=== PATIENT | male | born 1980 | race Caucasian/White ===

== ENCOUNTER 2019-07-31 04:59 | Emergency (ER) | payer BC ==
[2019-07-31] MEDS ORDERED: ONDANSETRON 4 MG/2 ML VIAL ONE ×2 (05:31→06:49)
[2019-07-31] MEDS ORDERED: MORPHINE 4 MG/ML SYR ONE (05:31)
[2019-07-31] MEDS ORDERED: NA CHLORIDE 0.9% 1,000 ML ONE ×2 (05:31→06:47)
[2019-07-31 06:07] LABS: Absolute Lymphocytes (CBC) 0.7 K/uL (0.7-4.9); Basophils % 0.5 % (0-1.3); Hematocrit 44.7 % (39.6-49.0); Lymphocytes % 12.1 % (15.3-44.8); MPV 9.9 fL (7.6-11.3); RBC Red Blood Cell Count 4.68 M/uL (4.33-5.43)
[2019-07-31] MEDS ORDERED: KETOROLAC 30 MG/ML INJ ONE (06:27)
--- NOTE | 2019-07-31 06:33 | EDPHYS ---
[facility] Name: Jordan Ross Age: 39 yrs Sex: Male : 1980 Arrival Date: 07/31/2019 Time: 05:03 Bed 4 Private MD: ED Physician Jonathan Feng HPI: 07/31 05:53 This 39 yrs old Male presents to ER via Ambulatory with complaints of Low alejandrina Back Pain. 05:53 The patient presents with pain that is acute. The symptoms are located in the low back, alejandrina left low back and left mid back. The pain radiates to the left low back and left mid back. The problem was sustained from unknown cause. Onset: The symptoms/episode began/occurred yesterday. Modifying factors: The patient symptoms are alleviated by nothing, the patient symptoms are aggravated by nothing. Severity of symptoms: At their worst the symptoms were mild, moderate, in the emergency department the symptoms are unchanged. The patient has not experienced similar symptoms in the past. Historical: - Allergies: 05:21 No Known Allergies; aa1 - Home Meds: 05:21 amlodipine oral [Active]; Adderall XR Oral [Active]; Diazepam Oral [Active]; Ambien aa1 Oral [Active]; - PMHx: 05:21 Depression; Hypertension; High Cholesterol; Anxiety; Kidney stones; aa1 - PSHx: 05:21 None; aa1 - Immunization history:: Flu vaccine is not up to date. - Coronavirus screen:: The patient has NOT traveled to [place] in the past 14 days. Proceed with normal triage process as indicated. - Social history:: Smoking status: Patient reports the use of cigarette tobacco products, smokes one-half pack cigarettes per day. - Family history:: not pertinent. - Ebola Screening: : No symptoms or risks identified at this time. ROS: 05:53 Constitutional: Negative for fever, chills, and weight loss, Eyes: Negative for injury, alejandrina pain, redness, and discharge, ENT: Negative for injury, pain, and discharge, Neck: Negative for injury, pain, and swelling, Cardiovascular: Negative for chest pain, palpitations, and edema, Respiratory: Negative for shortness of breath, cough, wheezing, and pleuritic chest pain, Abdomen/GI: Negative for abdominal pain, nausea, vomiting, diarrhea, and constipation, : Negative for injury, bleeding, discharge, and swelling, MS/Extremity: Negative for injury and deformity, Skin: Negative for injury, rash, and discoloration, Neuro: Negative for headache, weakness, numbness, tingling, and seizure, Psych: Negative for depression, anxiety, suicide ideation, homicidal ideation, and hallucinations, Allergy/Immunology: Negative for hives, rash, and allergies, Endocrine: Negative for neck swelling, polydipsia, polyuria, polyphagia, and marked weight changes, Hematologic/Lymphatic: Negative for swollen nodes, abnormal bleeding, and unusual bruising. 05:53 Back: Positive for flank pain, on the left. Exam: 05:53 Constitutional: This is a well developed, well nourished patient who is awake, alert, alejandrina and in no acute distress. Head/Face: Normocephalic, atraumatic. Eyes: Pupils equal round and reactive to light, extra-ocular motions intact. Lids and lashes normal. Conjunctiva and sclera are non-icteric and not injected. Cornea within normal limits. Periorbital areas with no swelling, redness, or edema. ENT: Nares patent. No nasal discharge, no septal abnormalities noted. Tympanic membranes are normal and external auditory canals are clear. Oropharynx with no redness, swelling, or masses, exudates, or evidence of obstruction, uvula midline. Mucous membranes moist. Neck: Trachea midline, no thyromegaly or masses palpated, and no cervical lymphadenopathy. Supple, full range of motion without nuchal rigidity, or vertebral point tenderness. No Meningismus. Chest/axilla: Normal chest wall appearance and motion. Nontender with no deformity. No lesions are appreciated. Cardiovascular: Regular rate and rhythm with a normal S1 and S2. No gallops, murmurs, or rubs. Normal PMI, no JVD. No pulse deficits. Respiratory: Lungs have equal breath sounds bilaterally, clear to auscultation and percussion. No rales, rhonchi or wheezes noted. No increased work of breathing, no retractions or nasal flaring. Abdomen/GI: Soft, non-tender, with normal bowel sounds. No distension or tympany. No guarding or rebound. No evidence of tenderness throughout. Male : Normal genitalia with no discharge or lesions. Skin: Warm, dry with normal turgor. Normal color with no rashes, no lesions, and no evidence of cellulitis. MS/ Extremity: Pulses equal, no cyanosis. Neurovascular intact. Full, normal range of motion. Neuro: Awake and alert, GCS 15, oriented to person, place, time, and situation. Cranial nerves II-XII grossly intact. Motor strength 5/5 in all extremities. Sensory grossly intact. Cerebellar exam normal. Normal gait. Psych: Awake, alert, with orientation to person, place and time. Behavior, mood, and affect are within normal limits. 05:53 Back: pain, that is mild, that is moderate, ROM is normal, normal spinal alignment noted, CVA tenderness, is absent, muscle spasm, is not present. Vital Signs: 05:21 BP 121 / 88; Pulse 95; Resp 18; Temp 98.1; Pulse Ox 99% on R/A; Weight 71.21 kg; Height aa1 5 ft. 9 in. (175.26 cm); Pain 8/10; 06:45 BP 124 / 91; Pulse 90; Resp 18; Pulse Ox 100% ; ea 07:45 BP 119 / 81; Pulse 85; Resp 18; Temp 97.8; Pulse Ox 99% on R/A; ph 05:21 Body Mass Index 23.18 (71.21 kg, 175.26 cm) [facility] MDM: 05:07 Patient medically screened. [facility] 05:56 Data reviewed: vital signs, nurses notes, lab test result(s), radiologic studies, CT [facility] scan. 07/31 05:17 Order name: Basic Metabolic Panel; Complete Time: 06:50 [facility] 07/31 05:17 Order name: CBC with Diff; Complete Time: 06:28 [facility] 07/31 05:17 Order name: Creatinine for Radiology; Complete Time: 06:28 [facility] 07/31 05:17 Order name: Hepatic Function; Complete Time: 06:50 [facility] 07/31 05:17 Order name: Lipase; Complete Time: 06:50 [facility] 07/31 05:53 Order name: Urine Culture [facility] 07/31 05:17 Order name: CT Stone Protocol [facility] 07/31 06:46 Order name: Abdomen 1 View (KUB) XRAY [facility] 07/31 05:17 Order name: IV Saline Lock; Complete Time: 05:46 [facility] 07/31 05:17 Order name: Labs collected and sent; Complete Time: 05:46 aa1 07/31 05:53 Order name: Urine Dipstick-Ancillary (obtain specimen); Complete Time: 06:56 alejandrina Administered Medications: 05:32 Drug: Zofran 4 mg Route: IVP; Site: right antecubital; aa1 06:15 Follow up: Response: No adverse reaction; Nausea is decreased jb4 05:32 Drug: NS 0.9% 1000 ml Route: IV; Rate: 1 bolus; Site: right antecubital; aa1 06:00 Follow up: Response: No adverse reaction; IV Status: Completed infusion; IV Intake: ea 1000ml 05:34 Drug: morphine 4 mg Route: IVP; Site: right antecubital; aa1 06:15 Follow up: Response: No adverse reaction; Pain is unchanged, physician notified; RASS: jb4 Restless (+1) 06:25 Drug: TORadol 30 mg Route: IVP; Site: right antecubital; jb4 06:50 Follow up: Response: No adverse reaction ea 06:48 Drug: Rocephin 1 grams Route: IV; Rate: per protocol; Site: right antecubital; ea 07:06 Follow up: Response: No adverse reaction; IV Status: Completed infusion ea 06:50 Drug: Zofran 4 mg Route: IVP; Site: right antecubital; ea 08:14 Follow up: Response: No adverse reaction ph 06:53 Drug: Flomax 0.4 mg Route: PO; ea 07:07 Follow up: Response: No adverse reaction ea 06:53 Drug: NS 0.9% 1000 ml Route: IV; Rate: 1 bolus; Site: right antecubital; ea 08:14 Follow up: Response: No adverse reaction; IV Status: Completed infusion; IV Intake: ph 1000ml 06:53 Drug: Dilaudid 1 mg Route: IVP; Site: right antecubital; ea 08:14 Follow up: Response: No adverse reaction; Pain is decreased; RASS: Alert and Calm (0) ph Disposition: 07/31/19 06:51 Discharged to Home. Impression: Hydronephrosis with renal and ureteral calculous obstruction - 4 mm distal left ureter, Cholelithiasis. - Condition is Fair. - Discharge Instructions: Kidney Stones, Cholelithiasis, Kidney Stones, [id number], Cholelithiasis, [id number], Hydronephrosis, Dietary Guidelines to Help Prevent Kidney Stones. - Prescriptions for Tylenol- Codeine #3 300-30 mg Oral Tablet - take 2 tablet by ORAL route every 6 hours As needed; 30 tablet. Zofran 4 mg Oral Tablet - take 1 tablet by ORAL route every 12 hours As needed; 20 tablet. Flomax 0.4 mg Oral Capsule, Sust. Release 24 hr - take 1 capsule by ORAL route once daily 1/2 hour following the same meal each day; 26 capsule. Cipro 500 mg Oral Tablet - take 1 tablet by ORAL route every 12 hours for 7 days; 14 tablet. - Medication Reconciliation Form, Thank You Letter, Antibiotic Education, Prescription Opioid Use, Work release form form. - Follow up: Private Physician; When: 2 - 3 days; Reason: Recheck today's complaints, Continuance of care, Re-evaluation by your physician. Follow up: Lisa Nascimento; When: 1 - 2 days; Reason: Recheck today's complaints, Continuance of care, Re-evaluation by your physician. Follow up: Sarkis Cota; When: 2 - 3 days; Reason: Recheck today's complaints, Re-evaluation by your physician. - Problem is new. - Symptoms have improved. Signatures: Dispatcher [employer] EDMS Dalia Alfaro RN RN aa1 Jonathan Feng MD MD cha Hall, Patricia RN RN Jordan Peace RN RN jb4 Kay Castaneda RN RN ea Corrections: (The following items were deleted from the chart) 06:33 06:32 07/31/2019 06:32 Discharged to Home. Impression: Hydronephrosis with renal and alejandrina ureteral calculous obstruction. Condition is Stable. Forms are Medication Reconciliation Form, Thank You Letter, Antibiotic Education, Prescription Opioid Use. Follow up: Private Physician; When: 2 - 3 days; Reason: Recheck today's complaints, Continuance of care, Re-evaluation by your physician. Follow up: Lisa Nascimento; When: 2 - 3 days; Reason: Recheck today's complaints, Re-evaluation by your physician. Problem is new. Symptoms have improved. [facility] 06:47 06:33 07/31/2019 06:32 Discharged to Home. Impression: Hydronephrosis with renal and alejandrina ureteral calculous obstruction - 4mm distal left ureter. Condition is Stable. Forms are Medication Reconciliation Form, Thank You Letter, Antibiotic Education, Prescription Opioid Use. Follow up: Private Physician; When: 2 - 3 days; Reason: Recheck today's complaints, Continuance of care, Re-evaluation by your physician. Follow up: Lisa Nascimento; When: 2 - 3 days; Reason: Recheck today's complaints, Re-evaluation by your physician. Problem is new. Symptoms have improved. [facility] 08:19 06:51 07/31/2019 06:51 Discharged to Home. Impression: Hydronephrosis with renal and ph ureteral calculous obstruction - 4 mm distal left ureter; Cholelithiasis. Condition is Fair. Discharge Instructions: Kidney Stones, Cholelithiasis, Kidney Stones, Vhvj-id-Tmes, Cholelithiasis, Dilv-np-Tjqt, Hydronephrosis, Dietary Guidelines to Help Prevent Kidney Stones. Prescriptions for Tylenol-Codeine #3 300-30 mg Oral Tablet - take 2 tablet by ORAL route every 6 hours As needed; 30 tablet, Zofran 4 mg Oral Tablet - take 1 tablet by ORAL route every 12 hours As needed; 20 tablet, Flomax 0.4 mg Oral Capsule, Sust. Release 24 hr - take 1 capsule by ORAL route once daily 1/2 hour following the same meal each day; 30 capsule, Cipro 500 mg Oral Tablet - take 1 tablet by ORAL route every 12 hours for 7 days; 14 tablet, Tylenol-Codeine #3 300-30 mg Oral Tablet - take 2 tablet by ORAL route every 6 hours As needed; 30 tablet, Zofran 4 mg Oral Tablet - take 1 tablet by ORAL route every 12 hours As needed; 20 tablet, Flomax 0.4 mg Oral Capsule, Sust. Release 24 hr - take 1 capsule by ORAL route once daily 1/2 hour following the same meal each day; 26 capsule, Cipro 500 mg Oral Tablet - take 1 tablet by ORAL route every 12 hours for 7 days; 14 tablet. and Forms are Medication Reconciliation Form, Thank You Letter, Antibiotic Education, Prescription Opioid Use. Follow up: Private Physician; When: 2 - 3 days; Reason: Recheck today's complaints, Continuance of care, Re-evaluation by your physician. Follow up: Lisa Nascimento; When: 1 - 2 days; Reason: Recheck today's complaints, Continuance of care, Re-evaluation by your physician. Follow up: Sarkis Cota; When: 2 - 3 days; Reason: Recheck today's complaints, Re-evaluation by your physician. Problem is new. Symptoms have improved. alejandrina
--- NOTE | 2019-07-31 06:33 | ER ---
Nurse's Notes [facility] Name: Jordan Ross Age: 39 yrs Sex: Male : 1980 Arrival Date: 07/31/2019 Time: 05:03 Bed 4 Private MD: Diagnosis: Hydronephrosis with renal and ureteral calculous obstruction-4 mm distal left ureter;Cholelithiasis Presentation: 07/31 05:18 Presenting complaint: Patient states: he thinks he may have a kidney stone again. aa1 Report L low back pain and nausea since 0000 tonight. Transition of care: patient was not received from another setting of care. Onset of symptoms was July 31, 2019 at 00:00. Risk Assessment: Do you want to hurt yourself or someone else? Patient reports no desire to harm self or others. Initial Sepsis Screen: Does the patient meet any 2 criteria? HR > 90 bpm. Does the patient have a suspected source of infection? No. Patient's initial sepsis screen is negative. Care prior to arrival: None. 05:18 Method Of Arrival: Ambulatory aa1 05:18 Acuity: MARC 3 aa1 Triage Assessment: 05:21 General: Appears in no apparent distress. uncomfortable, Behavior is calm, cooperative, aa1 appropriate for age. Historical: - Allergies: 05:21 No Known Allergies; aa1 - Home Meds: 05:21 amlodipine oral [Active]; Adderall XR Oral [Active]; Diazepam Oral [Active]; Ambien aa1 Oral [Active]; - PMHx: 05:21 Depression; Hypertension; High Cholesterol; Anxiety; Kidney stones; aa1 - PSHx: 05:21 None; aa1 - Immunization history:: Flu vaccine is not up to date. - Coronavirus screen:: The patient has NOT traveled to [place] in the past 14 days. Proceed with normal triage process as indicated. - Social history:: Smoking status: Patient reports the use of cigarette tobacco products, smokes one-half pack cigarettes per day. - Family history:: not pertinent. - Ebola Screening: : No symptoms or risks identified at this time. Screenin:30 Abuse screen: Denies threats or abuse. Nutritional screening: No deficits noted. ea Tuberculosis screening: No symptoms or risk factors identified. Fall Risk IV access (20 points). Assessment: 05:30 General: Appears uncomfortable, Behavior is appropriate for age. Pain: Complains of ea pain in left mid back and left low back. Neuro: Level of Consciousness is awake, alert, obeys commands, Oriented to person, place, time, situation. Cardiovascular: Patient's skin is warm and dry. Respiratory: Airway is patent Respiratory effort is even, unlabored, Respiratory pattern is regular, symmetrical. Derm: Skin is pink, warm \T\ dry. 06:15 Reassessment: Pt reports pain has increased since arriving to ED and that the morphine jb4 did not help. Provider notified, see MAR for orders. 06:30 Reassessment: Patient and/or family updated on plan of care and expected duration. Pain ea level reassessed. Patient is alert, oriented x 3, equal unlabored respirations, skin warm/dry/pink. 08:17 Reassessment: Patient appears in no apparent distress at this time. Patient and/or ph family updated on plan of care and expected duration. Pain level reassessed. Patient is alert, oriented x 3, equal unlabored respirations, skin warm/dry/pink. Pt d/c home. Vital Signs: 05:21 BP 121 / 88; Pulse 95; Resp 18; Temp 98.1; Pulse Ox 99% on R/A; Weight 71.21 kg; Height aa1 5 ft. 9 in. (175.26 cm); Pain 8/10; 06:45 BP 124 / 91; Pulse 90; Resp 18; Pulse Ox 100% ; ea 07:45 BP 119 / 81; Pulse 85; Resp 18; Temp 97.8; Pulse Ox 99% on R/A; ph 05:21 Body Mass Index 23.18 (71.21 kg, 175.26 cm) aa1 ED Course: 05:03 Patient arrived in ED. ag3 05:07 Jonathan Feng MD is Attending Physician. alejandrina 05:20 Triage completed. aa1 05:21 Arm band placed on left wrist. aa1 05:25 Inserted saline lock: 18 gauge in right antecubital area, using aseptic technique. cm6 05:30 Patient has correct armband on for positive identification. Bed in low position. Call ea light in reach. 05:34 Kay Castaneda, DANIEL is Primary Nurse. ea 06:09 CT Stone Protocol In Process Unspecified. EDMS 06:31 Lisa Nascimento MD is Referral Physician. alejandrina 06:51 Lisa Nascimento MD is Referral Physician. alejandrina 06:51 Sarkis Cota MD is Referral Physician. alejandrina 07:06 Abdomen 1 View (KUB) XRAY In Process Unspecified. EDMS 08:15 No provider procedures requiring assistance completed. IV discontinued, intact, ph bleeding controlled, No redness/swelling at site. Pressure dressing applied. Administered Medications: 05:32 Drug: Zofran 4 mg Route: IVP; Site: right antecubital; aa1 06:15 Follow up: Response: No adverse reaction; Nausea is decreased jb4 05:32 Drug: NS 0.9% 1000 ml Route: IV; Rate: 1 bolus; Site: right antecubital; aa1 06:00 Follow up: Response: No adverse reaction; IV Status: Completed infusion; IV Intake: ea 1000ml 05:34 Drug: morphine 4 mg Route: IVP; Site: right antecubital; aa1 06:15 Follow up: Response: No adverse reaction; Pain is unchanged, physician notified; RASS: jb4 Restless (+1) 06:25 Drug: TORadol 30 mg Route: IVP; Site: right antecubital; jb4 06:50 Follow up: Response: No adverse reaction ea 06:48 Drug: Rocephin 1 grams Route: IV; Rate: per protocol; Site: right antecubital; ea 07:06 Follow up: Response: No adverse reaction; IV Status: Completed infusion ea 06:50 Drug: Zofran 4 mg Route: IVP; Site: right antecubital; ea 08:14 Follow up: Response: No adverse reaction ph 06:53 Drug: Flomax 0.4 mg Route: PO; ea 07:07 Follow up: Response: No adverse reaction ea 06:53 Drug: NS 0.9% 1000 ml Route: IV; Rate: 1 bolus; Site: right antecubital; ea 08:14 Follow up: Response: No adverse reaction; IV Status: Completed infusion; IV Intake: ph 1000ml 06:53 Drug: Dilaudid 1 mg Route: IVP; Site: right antecubital; ea 08:14 Follow up: Response: No adverse reaction; Pain is decreased; RASS: Alert and Calm (0) ph Intake: 06:00 IV: 1000ml; Total: 1000ml. ea 08:14 IV: 1000ml; Total: 2000ml. ph Outcome: 06:32 Discharge ordered by . alejandrina 06:51 Discharge ordered by . alejandrina 08:15 Discharged to home ambulatory. ph 08:15 Condition: good 08:15 Discharge instructions given to patient, Instructed on discharge instructions, follow up and referral plans. medication usage, Demonstrated understanding of instructions, follow-up care, medications, Prescriptions given X 4. 08:19 Patient left the ED. ph Signatures: Dispatcher [employer] EDMS Dalia Alfaro, RN RN aa1 Jonathan Feng MD MD cha Hall, Patricia, RN RN ph Bryson, James RN RN [id number] Kay Castaneda, RN Leia Rice ea, Candace cm6 Corrections: (The following items were deleted from the chart) 05:38 05:38 Inserted saline lock: 18 gauge in right antecubital area, using aseptic cm6 technique. cm6
[2019-07-31 06:37] LABS: Albumin 4.2 g/dL (3.4-5.0); Bilirubin Direct 0.2 mg/dL (0-0.2); Bilirubin Total 0.5 mg/dL (0.2-1.0); Potassium 3.6 mmol/L (3.5-5.1); Protein, Total 7.4 g/dL (6.4-8.2)
[2019-07-31] MEDS ORDERED: TAMSULOSIN 0.4 MG SR CAP ONE (06:47)
[2019-07-31] MEDS ORDERED: CEFTRIAXONE/SWI 1gm 1 GM/10 ML SYR ONE (06:47)
[2019-07-31] MEDS ORDERED: HYDROMORPHONE HCL 1 MG/ML INJ ONE (06:49)
[2019-07-31 08:31] VITALS: BP 119/81; TEMP 97.8; O2SAT 99
--- NOTE | 2019-07-31 09:06 | RAD REPORT ---
EXAM DESCRIPTION: RAD - Abdomen 1 View (KUB) - 07/31/2019 7:15 am CLINICAL HISTORY: left distal 4mm ureter calculi;Abd pain Pain COMPARISON: Stone Protocol dated 07/31/2019 FINDINGS: The bowel gas pattern is non-obstructive. No evidence of free air or pneumatosis. Tiny obl richi calcification in the left pelvis likely represents distal left ureter stone.
--- NOTE | 2019-07-31 10:43 | RAD REPORT ---
EXAM DESCRIPTION: CT ABDOMEN AND PELVIS WITHOUT CONTRAST CLINICAL HISTORY: Low back pain and nausea. COMPARISON: None. TECHNIQUE: Axial unenhanced CT imaging of the abdomen and pelvis performed. Reformatted coronal and sagittal images reviewed. A dose reduction technique was utilized with automated exposure control according to patient size. FINDINGS: There is a calcified 8 mm granuloma within the anterior right lower lobe. Heart is normal in size. Normal liver. There is a solitary small stone within the gallbladder neck. No evidence of biliary dil atation or adjacent edema. Normal spleen and, pancreas, adrenal glands. Posterior lateral right renal 1 cm cyst. Mild fullness of the left renal pelvis. AP pelvis is 9 mm. Mild dilatation of the left ur eter. 4 mm distal left ureteral stone. Minimal left perinephric edema. Normal aorta and inferior vena cava caliber. No adenopathy. Normal stomach and small bowel loops. Normal right lower quadrant appendix identified. Fluid is prese nt within the ascending colon. Unremarkable remaining colon. No ascites or free air. No adenopathy. Normal bladder and prostate. Normal lumbar alignment. No subluxation. Intact bony pelvis. Normal hips. IMPRESSION: Left 1. Mild left hydronephrosis secondary to an obstructing distal left ureteral 4 mm stone. 2. Cholelithiasis with a calculus in the gallbladder neck. No evidence of cholecystitis or biliary di latation. 3. Right renal cyst. Electronically signed by: Fariba Quigley DO 07/31/2019 6:16 AM PAINTER APPRENTICE Due to temporary technical issues with the PACS/Fluency reporting system, reports are being signed by the in house radiologist as a courtesy to ensure prompt reporting. The interpreting radiologist is f ully responsible for the content of the report.
== END 2019-07-31 08:19 | disposition home or self-care (01) ==
LOC: ER 04:59
DX: K80.20 Calculus of gallbladder without cholecystitis without obstruction (principal); N13.2 Hydronephrosis with renal and ureteral calculous obstruction; F17.210 Nicotine dependence, cigarettes, uncomplicated; I10 Essential (primary) hypertension; F34.1 Dysthymic disorder; E78.00 Pure hypercholesterolemia, unspecified
CPT/HCPCS: 96365; 96361; 85025; 80048; 36415; 80076; 83690; 76377; 74176; 74018; 96375; 99284; J1170; J0696; J7030 ×2; J2405 ×2

== ENCOUNTER 2021-03-24 06:09 | Emergency (ER) | payer BC, SELFPAY ==
[2021-03-24] MEDS ORDERED: TETANUS & DIPHTHERIA TOX,ADULT 0.5 ML VIAL ONE (07:35)
[2021-03-24] MEDS ORDERED: LIDOCAINE 1% W/EPI 1:100,000 MDV 20 ML VIAL ONE (07:37)
--- NOTE | 2021-03-24 07:44 | RAD REPORT ---
EXAM DESCRIPTION: CT - CTHCSPWOC - 03/24/2021 6:52 am CLINICAL HISTORY: Trauma, head and neck injury. fall, head injury COMPARISON: Abdomen 1 View (KUB) dated 07/31/2019; Stone Protocol dated 07/31/2019 TECHNIQUE: Axial 5 mm thick images of the head were obtained. Axial 2 mm thick images of the cervical spine were obtained with sagittal and coronal reconstruction images generated and reviewed. All CT scans are performed using dose optimization technique as appropriate and may include automated exposure control or mA/KV adjustment according to patient size. FINDINGS: CT HEAD WITHOUT CONTRAST: No acute hemorrhage, hydrocephalus or extra-axial collection is identified.No areas of brain edema or midline shift. The calvarium is intact. Right maxillary sinus mucous retention cyst. There is a fracture through the body of the mandible on the left side. This is mildly displaced. The temporomandibular joints are intact. CT CERVICAL SPINE WITHOUT CONTRAST: No fracture or subluxation.No prevertebral soft tissues swelling is identified. IMPRESSION: Left mandibular body fracture. No acute intracranial abnormality. No skull fracture. No acute fracture or traumatic malalignment of the cervical spine.
--- NOTE | 2021-03-24 08:14 | RAD REPORT ---
EXAM DESCRIPTION: CT - CTFB CLINICAL HISTORY: fall, head injury COMPARISON: No comparisons TECHNIQUE: Axial 2 mm thick images of the face were obtained with sagittal and coronal reconstructio n images. All CT scans are performed using dose optimization technique as appropriate and may include automated exposure control or mA/KV adjustment according to patient size. FINDINGS: Acute fracture involving the body of the mandible on the left side. There is a laceration to the 10. The maxilla is intact. Trace mucosal thickening within the right maxillary sinus. Right ma xillary sinus mucous retention cyst. Right forehead swelling. The orbits are intact. IMPRESSION: Left body of mandible fracture. Alignment at the TMJ is maintained.
--- NOTE | 2021-03-24 08:51 | ER ---
Nurse's Notes [facility] Name: Jordan Ross Age: 40 yrs Sex: Male : 1980 Arrival Date: 03/24/2021 Time: 06:18 Bed 18 Private MD: Diagnosis: Fracture of mandible;Facial Laceration Presentation: 03/24 07:01 Chief complaint: Patient states: fall. Coronavirus screen: Vaccine status: Patient df1 reports being unvaccinated. Client reports previous positive COVID test result. Date of collection: February 2021. Ebola Screen: Patient negative for fever greater than or equal to 101.5 degrees Fahrenheit, and additional compatible Ebola Virus Disease symptoms Patient denies exposure to infectious person. Patient denies travel to an Ebola-affected area in the 21 days before illness onset. Initial Sepsis Screen: Does the patient meet any 2 criteria? No. Patient's initial sepsis screen is negative. Does the patient have a suspected source of infection? No. Patient's initial sepsis screen is negative. Risk Assessment: Do you want to hurt yourself or someone else? Patient reports no desire to harm self or others. Onset of symptoms was March 24, 2021 at 02:00. 07:01 Method Of Arrival: Law Enforcement: [place] [employer] df1 07:01 Acuity: MARC 3 df1 07:04 Note Pt arrived via law enforcement c/o fall from standing around 0200. Laceration df1 noted to right eye. Left great toe bleeding, partial nail removed. Dried blood noted to left ear canal. Pt denies N/V/dizziness/blurry vision. H/A and toe pain 7/10. Triage Assessment: 09:01 General: Behavior is cooperative. es2 Historical: - Allergies: 07:02 No Known Allergies; df1 - Home Meds: 07:02 Adderall XR Oral [Active]; Ambien Oral [Active]; amlodipine oral [Active]; diazepam df1 Oral [Active]; celexa [Active]; ambien [Active]; - PMHx: 07:02 Anxiety; Depression; High Cholesterol; Hypertension; Kidney stones; df1 - PSHx: 07:02 Vasectomy; df1 - Immunization history:: Adult Immunizations up to date, Client reports having NOT received the Covid vaccine. - Social history:: Smoking status: Patient reports the use of cigarette tobacco products, smokes one pack cigarettes per day. Patient uses street drugs, marijuana. Screenin:17 Abuse screen: Denies threats or abuse. Denies injuries from another. Nutritional ch5 screening: No deficits noted. Tuberculosis screening: No symptoms or risk factors identified. Fall Risk None identified. Assessment: 07:17 Reassessment: Report received. Pt jumped off bridge running from police. Laceration to ch5 head. Police at bedside.. General: Appears in no apparent distress. Pain: Complains of pain in forehead. Vital Signs: 07:01 BP 130 / 79; Pulse 83; Resp 18; Temp 98.7; Pulse Ox 100% on R/A; Weight 68.04 kg; df1 Height 5 ft. 10 in. (177.80 cm); Pain 7/10; 08:32 BP 120 / 77; Pulse 84; Resp 18; Pulse Ox 100% on R/A; ch5 07:01 Body Mass Index 21.52 (68.04 kg, 177.80 cm) df1 ED Course: 06:18 Patient arrived in ED. wm 06:19 Frank Pringle PA is PHCP. jmm 06:19 Jonathan Feng MD is Attending Physician. jmm 06:52 CT Head C Spine In Process Unspecified. EDMS 06:52 CT Facial Bones W/O Con In Process Unspecified. EDMS 07:02 Triage completed. df1 07:10 Macie Martinez, RN is Primary Nurse. lh3 07:17 Patient has correct armband on for positive identification. Bed in low position. Adult ch5 w/ patient. 07:17 Assist provider with laceration repair on forehead. ch5 07:44 Foot Left 3 View XRAY In Process Unspecified. EDMS 08:18 Attending Physician role handed off by Jonathan Feng MD kdr 08:18 Noah Davis MD is Attending Physician. kdr 08:50 Jessica Garner MD is Referral Physician. jmm 09:01 Arm band placed on. es2 09:01 Patient did not have IV access during this emergency room visit. es2 Administered Medications: 07:20 Drug: Tetanus-Diphtheria Toxoid Adult 0.5 ml {Administrative Officer: [employer]. Exp: ch5 08/27/2022. Lot #: [id number]. } Route: IM; Site: right deltoid; 09:02 Follow up: Response: No adverse reaction es2 08:10 Drug: Lidocaine-Epinephrine -1%: (1:100,000) 20 ml {Note: administered by Frank HINES.} ch5 Volume: 20 ml; Route: Infiltration; :02 Follow up: Response: No adverse reaction es2 08:55 Drug: Clindamycin 300 mg Route: PO; es2 09:02 Follow up: Response: No adverse reaction es2 Outcome: 08:50 Discharge ordered by MD. diaz 09:01 Discharged to Law Enforcement es2 09:01 Condition: stable 09:01 Discharge instructions given to patient, Instructed on discharge instructions, medication usage, Demonstrated understanding of instructions, medications, Prescriptions given X 1. 09:02 Patient left the ED. es2 Signatures: Dispatcher [employer] EDMS Noah Davis MD MD kdr Mickail, Joel, PA PA jmm Marsh, Wendy wm Hardee, Latisha RN RN 3 Tristan Alva RN RN ch5 Carmen Robison df1 Fay Velarde RN RN es2
--- NOTE | 2021-03-24 08:51 | EDPHYS ---
Physician Documentation [facility] Name: Jordan Ross Age: 40 yrs Sex: Male : 1980 Arrival Date: 03/24/2021 Time: 06:18 Bed 18 Private MD: ED Physician Noah Davis HPI: 03/24 06:54 This 40 yrs old Male presents to ER via Unassigned with complaints of Fall jmm Injury, Laceration To Forehead. 06:54 Details of fall: The patient fell from an upright position. Onset: The symptoms/episode jmm began/occurred acutely, today. Associated injuries: The patient sustained foot pain, toe pain. It is unknown whether or not the patient has had similar symptoms in the past. Historical: - Allergies: 07:02 No Known Allergies; df1 - Home Meds: 07:02 Adderall XR Oral [Active]; Ambien Oral [Active]; amlodipine oral [Active]; diazepam df1 Oral [Active]; celexa [Active]; ambien [Active]; - PMHx: 07:02 Anxiety; Depression; High Cholesterol; Hypertension; Kidney stones; df1 - PSHx: 07:02 Vasectomy; df1 - Immunization history:: Adult Immunizations up to date, Client reports having NOT received the Covid vaccine. - Social history:: Smoking status: Patient reports the use of cigarette tobacco products, smokes one pack cigarettes per day. Patient uses street drugs, marijuana. ROS: 06:54 Constitutional: Negative for fever, chills, and weight loss, Cardiovascular: Negative jmm for chest pain, palpitations, and edema, Respiratory: Negative for shortness of breath, cough, wheezing, and pleuritic chest pain. 06:54 MS/extremity: Positive for injury or acute deformity. 06:54 Neuro: Positive for headache. 06:54 All other systems are negative. Exam: 06:54 Constitutional: This is a well developed, well nourished patient who is awake, alert, jmm and in no acute distress. 06:54 Eyes: EOMI, no conjunctival erythema appreciated ENT: Moist Mucus Membranes Neck: Trachea midline, Supple Chest/axilla: Normal chest wall appearance and motion. Cardiovascular: Regular rate and rhythm. No edema appreciated Respiratory: Normal respirations, no respiratory distress appreciated Abdomen/GI: Non distended, soft Back: Normal ROM Skin: General appearance color normal 06:54 Head/face: 1 cm laceration noted to the right eyelid. 06:54 Musculoskeletal/extremity: superficial laceration, noted to the left toe. 06:54 Skin: Appearance: Color: normal in color. 06:54 Neuro: Orientation: is normal, Mentation: is normal, Memory: is normal. Vital Signs: 07:01 BP 130 / 79; Pulse 83; Resp 18; Temp 98.7; Pulse Ox 100% on R/A; Weight 68.04 kg; df1 Height 5 ft. 10 in. (177.80 cm); Pain 7/10; 08:32 BP 120 / 77; Pulse 84; Resp 18; Pulse Ox 100% on R/A; ch5 07:01 Body Mass Index 21.52 (68.04 kg, 177.80 cm) df1 Laceration: 08:49 Wound Repair of 1cm ( 0.4in ) subcutaneous laceration to right supraorbital ridge. jmm Distal neuro/vascular/tendon intact. Anesthesia: Local anesthetic administered with 1 mls of 1% lidocaine w/ Epi. Wound prep: Moderate cleansing with hibiclenz. Skin closed with 3 5-0 Prolene using simple sutures and sterile technique. Patient tolerated well. MDM: 06:40 Patient medically screened. [facility] 08:18 Data reviewed: vital signs, nurses notes. ED course: Discussed plan of care with the [facility] midlevel provider. The question was with regard to follow-up and antibiotics. The conclusion was that if there is any concern for the mandibular fracture being open, that he would be covered with antibiotics. Further the patient should follow-up with [facility] or ENT. 03/24 06:30 Order name: CT Head C Spine; Complete Time: 07:58 [facility] 03/24 06:30 Order name: CT Facial Bones W/O Con; Complete Time: 08:24 [facility] 03/24 06:54 Order name: Foot Left 3 View XRAY; Complete Time: 08:53 jm Administered Medications: 07:20 Drug: Tetanus-Diphtheria Toxoid Adult 0.5 ml {Plate Mounter: [employer]. Exp: ch5 08/27/2022. Lot #: [id number]. } Route: IM; Site: right deltoid; 09:02 Follow up: Response: No adverse reaction es2 08:10 Drug: Lidocaine-Epinephrine -1%: (1:100,000) 20 ml {Note: administered by Frank CALLAHAN} ch5 Volume: 20 ml; Route: Infiltration; 09:02 Follow up: Response: No adverse reaction es2 08:55 Drug: Clindamycin 300 mg Route: PO; es2 09:02 Follow up: Response: No adverse reaction es2 Disposition: 23:42 Co-signature as Attending Physician, Noah Davis MD I agree with the assessment and kdr plan of care. Disposition Summary: 03/24/21 08:50 Discharge Ordered Location: Home [facility] Condition: Stable [facility] Diagnosis - Fracture of mandible m - Facial Laceration [facility] Followup: [facility] - With: Jessica Garner MD - When: 2 - 3 days - Reason: Recheck today's complaints, Continuance of care, Re-evaluation by your physician Discharge Instructions: - Discharge Summary Sheet jm - Mandibular Fracture jmm - Facial Laceration [facility] Forms: - Medication Reconciliation Form [facility] - Thank You Letter [facility] - Antibiotic Education [facility] - Prescription Opioid Use [facility] Prescriptions: - Clindamycin HCl 300 mg Oral Capsule - take 1 capsule by ORAL route every 6 hours for 10 days; 40 capsule; Refills: 0, [facility] Product Selection Permitted Signatures: Dispatcher [employer] Jonathan Corona MD MD cha Rittger, Kevin, MD MD kdr Mickail, Joel, PA PA [facility] Tristan Alva RN RN ch5 Carmen Robison df1 Fay Velarde RN RN es2
--- NOTE | 2021-03-24 08:52 | RAD REPORT ---
EXAM DESCRIPTION: RAD - Foot Left 3 View - 03/24/2021 7:54 am CLINICAL HISTORY: fall, toe injury COMPARISON: No comparisons FINDINGS: No acute fracture. No malalignment. No significant focal degenerative changes. IMPRESSION: No acute osseous abnormality involving the left first toe.
[2021-03-24 09:08] VITALS: TEMP 98.7; O2SAT 100
[2021-03-24 09:09] VITALS: BP 120/77
== END 2021-03-24 09:02 | disposition home or self-care (01) ==
LOC: ER 06:09
PROC: 0JQ10ZZ Repair Face Subcutaneous Tissue and Fascia, Open Approach (ICD-10-PCS; principal; 2021-03-24)
DX: S01.81XA Laceration without foreign body of other part of head, initial encounter (principal); S02.602A Fracture of unspecified part of body of left mandible, initial encounter for closed fracture; W18.30XA Fall on same level, unspecified, initial encounter; I10 Essential (primary) hypertension; F41.8 Other specified anxiety disorders; F17.210 Nicotine dependence, cigarettes, uncomplicated; Z23 Encounter for immunization
CPT/HCPCS: 70450; 70486; 72125; 76377; 90471; 90714; 99284